=== PATIENT | male | born 1995 | race Caucasian/White ===

== ENCOUNTER 2021-07-13 07:02 | Outpatient (REF) | payer OTHER, SELFPAY ==
[2021-07-13 10:47] LABS: MANUAL DIFF FLAG NO
[2021-07-13 10:55] LABS: Basophils Percent Auto 0.4 % (0-2); Eosinophils Absolute Auto 0.3 X10*3/uL (0.0-0.4); Eosinophils Percent Auto 4.5 % (0-4); Hematocrit 44.8 % (42-52); Hemoglobin 15.3 g/dl (14.0-18.0); Imm Gran Abs Auto 0.01 X10*3/uL (0.00-0.03); Imm Gran Pct Auto 0.1 % (0.0-0.4); Lymphocytes Absolute Auto 2.4 X10*3/uL (1.2-4.9); Lymphocytes Percent Auto 35.5 % (20-40); Mean Corpuscular HGB Conc 34.2 g/dl (31.0-36.0); Mean Corpuscular Hemoglobin 28.9 pg (27.0-33.0); Mean Corpuscular Volume 84.5 fL (80-98); Mean Platelet Volume 11.4 fL (9.4-12.4); Monocytes Absolute Auto 0.7 X10*3/uL (0.1-1.2); Monocytes Percent Auto 9.6 % (2-11); Neutrophils Absolute Auto 3.4 X10*3/uL (2.0-8.3); Neutrophils Percent Auto 49.9 % (45-73); Platelet Count 263 X10*3/uL (160-400); Red Cell Distribution Width 12.3 % (11.0-16.0); White Blood Count 6.7 X10*3/uL (4.8-10.8)
[2021-07-13 11:41] LABS: TSH reflex Free T4 0.79 uIU/mL (0.32-4.0)
[2021-07-13 11:42] LABS: Alanine Aminotransferase 33 U/L (0-40); Albumin Level 4.5 g/dL (3.5-5.0); Alkaline Phosphatase 86 U/L (39-117); Anion Gap 11 (12-20); Aspartate Amino Transferase 20 U/L (5-37); Bilirubin Total 2.1 mg/dL (0.0-1.0); Blood Urea Nitrogen 11 mg/dL (9-16); Calcium 9.8 mg/dL (8.4-10.2); Carbon Dioxide 27 mmol/L (22-29); Chloride 104 mmol/L (96-108); Cholesterol 224 mg/dL; Estimated Glomerular Filt Rate > 60; Glucose Fasting 94 mg/dL (60-99); HDL Cholesterol 40 mg/dL; LDL Cholesterol Calculated 158 mg/dl; Potassium 4.4 mmol/L (3.3-5.1); Sodium 138 mmol/L (135-145); Total Protein 7.1 g/dL (6.5-8.0); Triglycerides 134 mg/dL
[2021-07-13 12:52] LABS: Appearance Urine TURBID; Color Urine YELLOW; Glucose Urine UA NEG (NEG); Leukocyte Esterase Urine 1+ (NEG); Nitrite Urine NEG (NEG); Specific Gravity - Urine 1.025 (1.005-1.025); Urine Blood NEG (NEG); Urine Ketones NEG (NEG); Urine Protein NEG (NEG-TRACE)
[2021-07-13 13:12] LABS: Amorphous Sediment Urine 4+ /LPF; Bacteria Urine 1+ /LPF; RBC Urine 0-2 /HPF (0)
== END 2021-07-13 07:03 | disposition home or self-care (01) ==
LOC: HO.WFDLDS 07:02
PROVIDERS: Visit Provider Family Medicine
DX: Z00.00 Encounter for general adult medical examination without abnormal findings (principal); R41.840 Attention and concentration deficit
CPT/HCPCS: 36415; 80053; 80061; 81001; 81003; 84443; 85025

== ENCOUNTER 2022-01-31 12:45 | Outpatient (REF) | payer OTHER, SELFPAY | END 2022-01-31 12:46 | disposition home or self-care (01) | LOC: HO.LAB 12:45 | PROVIDERS: Visit Provider Hospitalist | DX: R50.9 Fever, unspecified (principal); J02.8 Acute pharyngitis due to other specified organisms; B97.89 Other viral agents as the cause of diseases classified elsewhere; Z20.822 Contact with and (suspected) exposure to COVID-19 | CPT/HCPCS: U0003; U0005 ==

== ENCOUNTER 2022-04-25 11:34 | Outpatient (REF) | payer OTHER, SELFPAY ==
[2022-04-25 12:48] LABS: Influenza A PCR NEGATIVE (Negative); Influenza B PCR NEGATIVE (Negative); Resp Syncy Virus RNA Qual PCR NEGATIVE (Negative); SARS COV2 PCR INHOUSE NEGATIVE (Negative)
== END 2022-04-25 11:35 | disposition home or self-care (01) ==
LOC: HO.LNP 11:34
PROVIDERS: Visit Provider Family Medicine
DX: Z20.822 Contact with and (suspected) exposure to COVID-19 (principal); J02.9 Acute pharyngitis, unspecified
CPT/HCPCS: 0241U

== ENCOUNTER 2022-04-28 09:12 | Outpatient (REF) | payer OTHER, SELFPAY ==
--- NOTE | ~2022-04-28 | XR_ITS ---
EXAMINATION: XR CHEST CLINICAL INFORMATION: Cough. COMPARISON: None TECHNIQUE: 2 views of the chest were obtained. FINDINGS: No significant abnormality is noted involving the heart, lungs, mediastinum, bony thorax or soft tissues. XR/XR chest 2V IMPRESSION: Unremarkable chest examination.
[2022-04-28 11:14] LABS: MANUAL DIFF FLAG NO
[2022-04-28 11:25] LABS: Basophils Percent Auto 0.6 % (0-2); Eosinophils Absolute Auto 0.5 X10*3/uL (0.0-0.4); Eosinophils Percent Auto 10.3 % (0-4); Hematocrit 47.5 % (42.0-52.0); Hemoglobin 16.5 g/dl (14.0-18.0); Imm Gran Abs Auto 0.01 X10*3/uL (0.00-0.03); Imm Gran Pct Auto 0.2 % (0.0-0.4); Lymphocytes Absolute Auto 1.9 X10*3/uL (1.2-4.9); Lymphocytes Percent Auto 39.5 % (20-40); Mean Corpuscular HGB Conc 34.7 g/dl (31.0-36.0); Mean Corpuscular Hemoglobin 29.7 pg (27.0-33.0); Mean Corpuscular Volume 85.4 fL (80.0-98.0); Mean Platelet Volume 11.6 fL (9.4-12.4); Monocytes Absolute Auto 0.7 X10*3/uL (0.1-1.2); Monocytes Percent Auto 15.5 % (2-11); Neutrophils Absolute Auto 1.6 x10*3/uL (2.0-8.3); Neutrophils Percent Auto 33.9 % (45-73); Platelet Count 227 X10*3/uL (160-400); Red Blood Count 5.56 X10*6/uL (4.60-5.80); Red Cell Distribution Width 12.4 % (11.0-16.0); White Blood Count 4.8 X10*3/uL (4.8-10.8)
[2022-04-28 11:40] LABS: Anion Gap 12 (12-20); Blood Urea Nitrogen 10 mg/dL (9-16); Carbon Dioxide 26 mmol/L (22-29); Chloride 104 mmol/L (96-108); Estimated Glomerular Filt Rate > 60; Glucose Random 89 mg/dL (60-115); Potassium 4.9 mmol/L (3.3-5.1); Sodium 137 mmol/L (135-145)
[2022-04-28 12:35] LABS: Influenza A PCR NEGATIVE (Negative); Influenza B PCR NEGATIVE (Negative); Resp Syncy Virus RNA Qual PCR NEGATIVE (Negative); SARS COV2 PCR INHOUSE NEGATIVE (Negative)
[2022-05-01 12:32] LABS: CRP High Sensitivity 4.5 mg/L
== END 2022-04-28 09:13 | disposition home or self-care (01) ==
LOC: HO.XRAY 09:12
PROVIDERS: Visit Provider Family Medicine
DX: Z00.00 Encounter for general adult medical examination without abnormal findings (principal); Z20.822 Contact with and (suspected) exposure to COVID-19; R05.9 Cough, unspecified; R09.89 Other specified symptoms and signs involving the circulatory and respiratory systems
CPT/HCPCS: 0241U; 36415; 71046; 80048; 85025; 86141

== ENCOUNTER 2022-11-07 09:53 | Outpatient (REF) | payer OTHER, SELFPAY ==
[2022-11-07 12:21] LABS: Influenza A PCR NEGATIVE (Negative); Influenza B PCR NEGATIVE (Negative); Resp Syncy Virus RNA Qual PCR NEGATIVE (Negative); SARS COV2 PCR INHOUSE NEGATIVE (Negative)
== END 2022-11-07 09:54 | disposition home or self-care (01) ==
LOC: HO.LAB 09:53
PROVIDERS: Visit Provider Family Medicine
DX: Z20.822 Contact with and (suspected) exposure to COVID-19 (principal)
CPT/HCPCS: 0241U

== ENCOUNTER 2023-07-04 08:31 | Outpatient (AMB) | payer BC, SELFPAY ==
--- NOTE | 2023-07-04 08:59 | MHC.OFFWIV ---
Intake Vital Signs 07/04/23 09:01 Weight 229 lb BP 120/80 Blood Pressure Location Rt brachial Position Sitting Pulse 66 Pulse Source Pulse Oximeter Pulse Oximetry (%) 98 Oxygen Delivery Method Room Air Oxygen Flow Rate 98.1 Intake Visit Reasons: EP ?Stomach bug Intake Note: Patient here for possible stomach bug. He did mention he had sushi and then woke up the next day with nausea, sweating, weak and vomiting. Patient Tobacco Use Status: Current someday Tobacco user Allergies shellfish derived Allergy (Intermediate, Verified 07/04/23 09:33) Hives Medication List - Last Reconciled 07/04/23 by Gilson Baird MD citalopram 10 mg PO DAILY 30 days omeprazole 20 mg PO DAILY 6 weeks sumatriptan succinate take 1 tab at onset of headache; if no relief may repeat 1 tab after at least 2 hrs; max = 4 tabs/24 hr orally PRN; 30 days topiramate 50 mg PO DAILY Do you need a note to return to daycare/school/sports/work: Yes HPI EP ?Stomach bug HPI Details 28-year-old male presents to the office for a sick visit. Patient has been having abdominal pain, nausea and vomiting in the past few days. 1-2 episodes of diarrhea 2. He believes symptoms started after he ate sushi. Unable to work and needs a note for work. [facility] Medical History History of kidney stones Family History Father Hypertension Mother Hypertension Other Substance use disorder Social History Housing: House Alcohol intake: current Alcohol intake frequency: holidays/special occasions only Patient Tobacco Use Status: Current someday Tobacco user e-Cigarette/Vaping Use: Never Used Substance Use Type: Marijuana service: No Current occupational status: employed and student Current occupational exposures/hazards: No Cognitive needs: No Hearing needs: No Vision needs: Yes (glasses) Physical Exam Vital Signs: Last Vital Signs Pulse 66 07/04/23 09:01 BP 120/80 07/04/23 09:01 Pulse Ox 98 07/04/23 09:01 Oxygen Delivery Method Room Air 07/04/23 09:01 Oxygen Flow Rate 98.1 07/04/23 09:01 Const General: cooperative and healthy appearing Nutritional Appearance: well nourished Orientation/consciousness: patient oriented x3 Limitations: no limitations HEENT Head: Yes normal to inspection Eyes General: appearance normal, both eyes and all related structures Neck Neck: Yes normal visual inspection Chest Chest palpation & inspection: normal palpation of entire chest wall Resp Effort & Inspection: normal respiratory effort Neuro General: patient oriented x3 Assessment & Plan Assessment & Plan (1) Gastroenteritis: Code(s): K52.9 - Noninfective gastroenteritis and colitis, unspecified Plan: Self-limiting illness. No antibiotics needed. Note for work given. Coding Level of Care Code Est Pt Level 3 (32706) Diagnoses Gastroenteritis K52.9
[2023-07-04 09:01] VITALS: BP 120/80; PULSE 66; O2SAT 98
== END 2023-07-04 10:27 | disposition home or self-care (01) ==
PROVIDERS: PCP Family Medicine; Visit Provider Internal Medicine
DX: K52.9 Noninfective gastroenteritis and colitis, unspecified (principal)
CPT/HCPCS: 99213

== ENCOUNTER 2023-10-11 16:11 | Outpatient (AMB) | payer BC, SELFPAY ==
[2023-10-11 16:27] VITALS: BP 122/74; PULSE 67; O2SAT 97; BMI 31.1
--- NOTE | 2023-10-11 16:27 | MHC.PC.OV ---
Vital Signs 10/11/23 16:27 Height 6 ft Weight 229 lb BMI 31.1 BP 122/74 Blood Pressure Location Lt brachial Position Sitting Pulse 67 Pulse Source Pulse Oximeter Pulse Oximetry (%) 97 Oxygen Delivery Method Room Air Intake Visit Reasons: CPE with f/u labs and health maintenance Intake Note: Patient is here for his physical, is concerned about the Citalopram. Allergies shellfish derived Allergy (Intermediate, Verified 10/11/23 16:33) Hives Tobacco use date assessed: 10/11/23 Dental Screening Dental Screen Date: 10/11/23 Did you have a dental visit in the last 12 months?: No Did you have a dental problem in the last 6 months where you did not have access to dental care?: No Was dental information given to patient?: Patient declined HPI CPE with f/u labs and health maintenance HPI Details 28 y/o male presents for a CPE with f/u labs and health maintenance. No recent labs to review. He is on citalopram 10mg daily for his anxiety/depression. Pt reports ongoing GERD. He is on omeprazole 20mg daily. [facility] Medical History History of kidney stones Family History Father Hypertension Mother Hypertension Other Substance use disorder Social History Housing: House Alcohol intake: current Alcohol intake frequency: holidays/special occasions only Patient Tobacco Use Status: Current someday Tobacco user e-Cigarette/Vaping Use: Never Used Substance Use Type: Marijuana service: No Current occupational status: employed and student Current occupational exposures/hazards: No Cognitive needs: No Hearing needs: No Vision needs: Yes (glasses) Questionnaire Thrive Questionnaire Date Thrive assessed: 12/01/22 BRYAN-7 AMB Questionnaire BRYAN-7 Date BRYAN - 7 assessed: 12/01/22 Source: Developed by Drs. Ryland Lizarraga, Mariah Aggarwal, Deven Elkins and colleagues, with an educational joanna from [employer] Review of Systems Const Denies chills, Denies fatigue, Denies fever(s), Denies headache(s) and Denies weakness Eyes Denies change in vision ENT Denies dizziness, Denies headache(s), Denies hearing loss, Denies nasal congestion, Denies sinus pain, Denies sinus pressure and Denies sore throat Card Denies chest pain, Denies lightheadedness, Denies dyspnea and Denies other (palpitations) Resp Denies cough, Denies dyspnea and Denies wheezing GI Denies abdominal pain, Denies melena, Denies hematochezia, Denies change in bowel habits, Denies dyspepsia and Denies nausea Denies hematuria and Denies dysuria Musc Denies abnormal gait, Denies myalgias, Denies arthralgias, Denies numbness and Denies tingling Skin/Breast Denies rash, Denies unusual bruising and Denies wounds Neuro Denies abnormal gait, Denies dizziness, Denies headache(s), Denies memory loss, Denies numbness, Denies Sensory deficit (Neuro), Denies tingling and Denies weakness Psych Denies anxiety, Denies depression and Denies memory loss Endo Denies cold intolerance, Denies fatigue, Denies heat intolerance, Denies polydipsia and Denies polyuria Saqib/Lymph Denies easy bleeding and Denies easy bruising Aller/Immun Denies wheezing Physical exam (Primary Care) Vital Signs: Last Vital Signs Pulse 67 10/11/23 16:27 BP 122/74 10/11/23 16:27 Pulse Ox 97 10/11/23 16:27 Oxygen Delivery Method Room Air 10/11/23 16:27 BMI result Body Mass Index 31.1 Tobacco/Smoking Status: Tobacco use Status Tobacco use date assessed 10/11/23 10/11/23 16:39 Patient Tobacco Use Status Current someday Tobacco 10/11/23 16:28 e-Cigarette/Vaping Use Never Used 10/11/23 16:28 Thrive Assessment: Date of Thrive Assessment Date Thrive assessed 12/01/22 10/11/23 16:28 Const General: no acute distress, well developed, alert and awake Nutritional Appearance: well nourished and obese Orientation/consciousness: patient oriented x3 HENMT Head: Yes normocephalic and Yes atraumatic Ears: hearing grossly normal bilaterally and TM's normal bilaterally General nose exam: Normal external nose present and Normal nares present Mouth: Normal oral and palatal mucosa present and moist mucous membranes Teeth and gingiva: dentition normal Throat: Yes posterior oropharynx normal Eyes General: appearance normal, both eyes and all related structures Pupils: Equal, round and reactive pupils present and Pupil accommodation reflex normal EOM: EOMs intact bilaterally Neck Neck: Yes normal visual inspection, Yes no lymphadenopathy and Yes trachea midline Thyroid: Thyroid normal Carotids: no bruits Lymphatic: no lymphadenopathy noted Chest Chest palpation & inspection: normal inspection of the chest Resp Effort & Inspection: normal respiratory effort Auscultation: clear to auscultation bilaterally Cardio Rate: regular rate Rhythm: regular rhythm Heart sounds: S1 normal heart sound present, S2 normal heart sound present, no gallops, no murmurs and no rubs Bruits: no abdominal aortic bruits and no carotid bruits GI Palpation (GI): No Abdominal aortic bruit present, Soft to palpation, nontender, No hepatosplenomegaly present and No Rebound tenderness present Auscultation: normal bowel sounds General: Yes no CVA tenderness Back/Spine/Pelvis Back: no CVA tenderness Cervical Spine: cervical ROM normal and No Cervical spine tenderness Thoracic/Lumbar Spine: thoraco-lumbar ROM normal, No pain with thoraco-lumbar ROM, No thoracic spinal tenderness and No lumbar spinal tenderness Skin Lesions: no lesions Rashes: no rashes Trauma: no lacerations or abrasions Wounds: no wounds Nails: normal Neuro General: patient oriented x3 Cranial nerves: Yes Equal, round and reactive pupils present Cognition (Neuro): normal cognition Gait exam (Neuro): Normal gait present Motor exam (neuro): 5/5 motor strength present throughout Sensory Exam: No Sensory deficit (Neuro) Deep tendon reflexes (DTR's): Right patellar reflex intensity grade: 2+ and Left patellar reflex intensity grade: 2+ Extrem General: Yes normal to inspection and No edema Psych Appearance: grossly normal Affect: normal affect Attitude: cooperative Thought process: Normal thought process present Assessment and Plan Assessment & Plan (1) Encounter for annual general medical examination without abnormal findings in adult: Code(s): Z00.00 - Encounter for general adult medical examination without abnormal findings Plan: 28-year-old?male?presents?for?complete?physical?exam Encouraged?healthy?diet?with?active?lifestyle?and?plenty?of?exercise (2) Anxiety and depression: Code(s): F41.9 - Anxiety disorder, unspecified; F32.A - Depression, unspecified Plan: Patient?would?like?to?increase?citalopram.??He?notes?that?it?had?been?higher?previously?and?was?working?better Will?increase?back?to?30?mg?daily (3) GERD (gastroesophageal reflux disease): Code(s): K21.9 - Gastro-esophageal reflux disease without esophagitis Plan: Chronic?GERD?despite?omeprazole. Continue?omeprazole?and?I?have?referred?him?to?GI Orders: Orders Comprehensive [place]. Panel Fast Today Z00.00 - Encounter for general adult medical examination without abnormal findings Complete Blood Count Auto Diff Today Z00.00 - Encounter for general adult medical examination without abnormal findings Lipid Panel Today Z00.00 - Encounter for general adult medical examination without abnormal findings TSH reflex Free T4 Today Z00.00 - Encounter for general adult medical examination without abnormal findings Microalbumin, Random (w Creat) Today I10 - Essential (primary) hypertension UA and rflx microscopic Today Z00.00 - Encounter for general adult medical examination without abnormal findings Referrals Gastroenterology Referral K21.9 - Gastro-esophageal reflux disease without esophagitis Medications: Changed From citalopram 10 mg PO DAILY 30 days 30 tabs 3RF F41.9 - Anxiety disorder, unspecified To citalopram 30 mg (1.5 x 20 mg) PO DAILY 45 tabs 3RF 30 days F41.9 - Anxiety disorder, unspecified Refilled omeprazole take on an empty stomach with water 20 mg PO DAILY 42 caps 1RF 6 weeks K21.9 - Gastro-esophageal reflux disease without esophagitis Coding Level of Care Code Est Pt Level 3 (70762) Est Pt Prev Care 18-39y(30478) Diagnoses Encounter for annual general medical examination without abnormal findings in adult Z00.00 Anxiety and depression F41.9; F32.A GERD (gastroesophageal reflux disease) K21.9
== END 2023-10-11 17:21 | disposition home or self-care (01) ==
PROVIDERS: PCP Family Medicine; Visit Provider Family Medicine
DX: Z00.00 Encounter for general adult medical examination without abnormal findings (principal); F41.9 Anxiety disorder, unspecified; F32.A Depression, unspecified; K21.9 Gastro-esophageal reflux disease without esophagitis
CPT/HCPCS: 99395

== ENCOUNTER 2024-01-10 08:31 | Outpatient (REF) | payer BC, SELFPAY ==
[2024-01-10 11:34] LABS: MANUAL DIFF FLAG NO
[2024-01-10 11:35] LABS: Basophils Percent Auto 0.4 % (0-2); Eosinophils Absolute Auto 0.3 X10*3/uL (0.0-0.4); Eosinophils Percent Auto 4.4 % (0-4); Hematocrit 47.4 % (42.0-52.0); Hemoglobin 16.6 g/dl (14.0-18.0); Imm Gran Abs Auto 0.02 X10*3/uL (0.00-0.03); Imm Gran Pct Auto 0.3 % (0.0-0.4); Lymphocytes Absolute Auto 2.2 X10*3/uL (1.2-4.9); Lymphocytes Percent Auto 29.1 % (20-40); Mean Corpuscular Hemoglobin 29.5 pg (27.0-33.0); Mean Corpuscular Volume 84.2 fL (80.0-98.0); Mean Platelet Volume 11.3 fL (9.4-12.4); Monocytes Absolute Auto 0.6 X10*3/uL (0.1-1.2); Monocytes Percent Auto 8.1 % (2-11); Neutrophils Absolute Auto 4.4 x10*3/uL (2.0-8.3); Neutrophils Percent Auto 57.7 % (45-73); Platelet Count 266 X10*3/uL (160-400); Red Blood Count 5.63 X10*6/uL (4.60-5.80); Red Cell Distribution Width 12.3 % (11.0-16.0); White Blood Count 7.6 X10*3/uL (4.8-10.8)
[2024-01-10 11:50] LABS: Appearance Urine Turbid; Color Urine Dark Yellow; Glucose Urine UA Negative (Negative); Leukocyte Esterase Urine Trace (Negative); Nitrite Urine Negative (Negative); Specific Gravity - Urine 1.025 (1.005-1.025); UMIC TRIGGER UA YES; Urine Blood Negative (Negative); Urine Ketones Trace mg/dL (Negative); Urine Protein Negative (Neg-Trace)
[2024-01-10 11:53] LABS: Bacteria Urine None Seen (None Seen); Hyaline Casts Urine 0-2 /LPF (0-2); RBC Urine 0-2 /HPF (0-2); Squamous Epithelial Cell Urine 0-2 /HPF (0-2)
[2024-01-10 12:09] LABS: Alanine Aminotransferase 33 U/L (0-40); Albumin Level 4.6 g/dL (3.5-5.0); Alkaline Phosphatase 100 U/L (39-117); Anion Gap 11 (12-20); Aspartate Amino Transferase 21 U/L (5-37); Bilirubin Total 1.7 mg/dL (0.0-1.0); Blood Urea Nitrogen 11 mg/dL (9-16); Calcium 9.8 mg/dL (8.4-10.2); Carbon Dioxide 30 mmol/L (22-29); Chloride 105 mmol/L (96-108); Cholesterol 218 mg/dL (<200); Estimated Glomerular Filt Rate > 60; Glucose Fasting 101 mg/dL (60-99); HDL Cholesterol 39 mg/dL (>40); LDL Cholesterol Calculated 143 mg/dL (<100); Potassium 4.5 mmol/L (3.3-5.1); Sodium 141 mmol/L (135-145); Total Protein 7.8 g/dL (6.5-8.0); Triglycerides 184 mg/dL (<150)
[2024-01-10 12:16] LABS: TSH reflex Free T4 1.18 uIU/mL (0.32-4.0)
[2024-01-10 12:16] LABS: Microalbum/Creatinine Ratio Ur 5.8 ug/mg cr (<30)
== END 2024-01-10 08:32 | disposition home or self-care (01) ==
LOC: HO.WFDLDS 08:31
PROVIDERS: Visit Provider Family Medicine
DX: Z00.00 Encounter for general adult medical examination without abnormal findings (principal); I10 Essential (primary) hypertension
CPT/HCPCS: 36415; 80053; 80061; 81001; 82043; 82570; 84443; 85025

== ENCOUNTER 2024-01-14 14:51 | Outpatient (AMB) | payer BC, SELFPAY ==
[2024-01-14 14:56] VITALS: BP 137/79; PULSE 68; BMI 29.8
--- NOTE | 2024-01-14 14:56 | MHC.OFFVIS ---
Intake Vital Signs 01/14/24 14:56 Height 6 ft Weight 219 lb 9.286 oz BMI 29.8 BP 137/79 Blood Pressure Location Lt brachial Position Sitting Pulse 68 Intake Visit Reasons: Gerd Intake Note: New patient in office for evaluation and management of GERD. CC: Patient states he has been going to the doctors for migraines mostly. He sates he has been having a lot of issues with his gallbladder after eating some foods. He reports nausea, acid reflux, heartburn, lingering headache, sometimes a migraine, and feeling bloated. He states he is trying to figure out if his gallbladder is the root of his migraine issues. He's had these issues since he was a child. PT reports passing a gallstone that was very big . Drawer Liner Required: No Accompanied by: Self / Same As Patient Allergies shellfish derived Allergy (Intermediate, Verified 01/14/24 15:07) Hives No Known Drug Allergies Allergy (Unknown, Verified 01/14/24 15:07) none HPI Gerd HPI Details 29-year-old male with past medical history and anxiety, migraines, GERD hypercholesteremia, is here today for initial consultation. Patient was sent to us by his PCP. Patient reports to symptoms of postprandial loose stools occasionally depending on what he eats. Patient states that when he eats something fried or spicy he will have loose stools and upper abdominal patient reports that the pain is in the epigastric area and in right upper quadrant. Patient states that otherwise he moves his bowels every day. Patient states that when he eats healthy like chicken and vegetables he is not having those symptoms. Patient denies any nausea or vomiting. Repaired occasional dyspepsia depending on the food. Currently is taking omeprazole. However patient is not taking it every day. Takes omeprazole for 3 days then off for 1-2 days. Patient denies any melena, hematochezia, unintentional weight loss or ribbon like stools. Patient reports occasional dyspepsia without dysphagia or odynophagia. Patient believes that he might have gallstones [facility] Medical History (Updated 01/14/24 @ 15:36 by Narda Flores SPECIAL MACHINE OPERATOR-) Anxiety and depression Abnormal lung sounds Cough Constipation Sore throat History of kidney stones Surgical History History of mandibular surgery Family History Father Hypertension High cholesterol Mother Hypertension High cholesterol Other Substance use disorder Social History Housing: House Alcohol intake: current Alcohol intake frequency: holidays/special occasions only Patient Tobacco Use Status: Current someday Tobacco user e-Cigarette/Vaping Use: Never Used Substance Use Type: Marijuana service: No Current occupational status: employed and student Current occupational exposures/hazards: No Cognitive needs: No Hearing needs: No Vision needs: Yes (glasses) Review of Systems Const Denies weight gain and Denies weight loss ENT Reports no additional complaints, Denies dysphagia and Denies odynophagia Card Reports no additional complaints Resp Reports no additional complaints GI Reports abdominal pain (Epigastric, RUQ), Denies belching, Denies melena, Reports bloating, Reports constipation, Denies dysphagia, Denies excessive flatus, Reports dyspepsia, Reports heartburn, Denies diarrhea, Reports loose stools, Denies nausea, Denies odynophagia and Denies vomiting Reports no additional complaints Musc Reports no additional complaints Neuro Reports no additional complaints Psych Reports no additional complaints Endo Reports no additional complaints Physical Exam Vital Signs: Last Vital Signs Pulse 68 01/14/24 14:56 BP 137/79 01/14/24 14:56 BMI result Body Mass Index 29.8 Const General: healthy appearing, no acute distress and well developed Nutritional Appearance: obese Orientation/consciousness: patient oriented x3 Resp Effort & Inspection: normal respiratory effort, able to speak in complete sentences, no tracheal deviation and symmetric chest movement Auscultation: clear to auscultation bilaterally Cardio Rate: regular rate GI Inspection: Yes normal to inspection, No distended and Yes obesity Palpation (GI): Soft to palpation, not firm, nontender and No hepatosplenomegaly present Auscultation: normal bowel sounds General: Yes no CVA tenderness Back/Spine/Pelvis Back: no CVA tenderness Skin General skin exam: elasticity normal, turgor normal and dry skin Neuro General: patient oriented x3 Psych Appearance: grossly normal Mental Status: mental status grossly normal Assessment & Plan Assessment & Plan (1) Diarrhea: Code(s): R19.7 - Diarrhea, unspecified Qualifiers: Diarrhea type: functional diarrhea Qualified Code(s): K59.1 - Functional diarrhea (2) GERD (gastroesophageal reflux disease): Code(s): K21.9 - Gastro-esophageal reflux disease without esophagitis Qualifiers: Esophagitis presence: esophagitis presence not specified Qualified Code(s): K21.9 - Gastro-esophageal reflux disease without esophagitis (3) Elevated bilirubin: Code(s): R17 - Unspecified jaundice (4) Postprandial diarrhea: Code(s): K52.9 - Noninfective gastroenteritis and colitis, unspecified Plan Occasional postprandial loose stools depending on what he eats. It usually happens with greasy or spicy food. Most likely functional diarrhea. Discussed with patient low FODMAP diet. List of food recommended as well as list of food to avoid given to patient. Occasional postprandial abdominal pain epigastric and right upper quadrant. Patient will go for ultrasound rule out cholelithiasis, cholecystitis. Unlikely cholecystitis as patient pain only happens occasionally depending on what he eats. Mostly his pain is in epigastric area. Patient does admit to postprandial abdominal bloating. Again patient will continue low FODMAP diet. Will repeat bili. Patient's total bilirubin was elevated. He had normal liver enzymes. Will check lipase as well to pancreatitis. Patient will be seen in 4 months, sooner on as needed basis. He can continue omeprazole on as needed basis. Discussed with him avoiding dietary triggers in late night snacking. Staying upright for minimum 3 hours after meals discussed with patient. Patient is agreeable to current plan of care and verbalizes understanding of instructions he was given the opportunity to ask questions and all questions answered. Thank you for allowing me to participate in his care Orders: Orders Vitamin D 25-OH (D2 and D3) Today E55.9 - Vitamin D deficiency, unspecified Transglutaminase Ab IgG Today R10.9 - Unspecified abdominal pain Transglutaminase IgA Today R10.9 - Unspecified abdominal pain US abdomen complete Today R10.9 - Unspecified abdominal pain Bilirubin Total Today R10.9 - Unspecified abdominal pain Vitamin B12 and Folate Today R19.7 - Diarrhea, unspecified Lipase Today R10.9 - Unspecified abdominal pain Bilirubin Direct Today R17 - Unspecified jaundice Coding Level of Care Code New Pt Level 4 (07373) Diagnoses Functional diarrhea K59.1 Diarrhea type: functional diarrhea Gastroesophageal reflux disease, unspecified whether esophagitis present K21.9 Esophagitis presence: esophagitis presence not specified Elevated bilirubin R17 Postprandial diarrhea K52.9 Time Spent (min) 45 Comment 30 minutes spent with patient and additional 15 minutes spent reviewing his records
== END 2024-01-14 16:12 | disposition home or self-care (01) ==
PROVIDERS: PCP Family Medicine; Visit Provider Nurse Practitioner Family
DX: K52.9 Noninfective gastroenteritis and colitis, unspecified (principal); K21.9 Gastro-esophageal reflux disease without esophagitis; R17 Unspecified jaundice
CPT/HCPCS: 99204

== ENCOUNTER 2024-01-14 14:51 | Outpatient (REF) | payer BC, SELFPAY ==
[2024-01-14 17:51] LABS: Appearance Urine Clear; Color Urine Yellow; Glucose Urine UA Negative (Negative); Leukocyte Esterase Urine Negative (Negative); Nitrite Urine Negative (Negative); Urine Blood Negative (Negative); Urine Ketones Negative (Negative); Urine Protein Negative (Neg-Trace)
[2024-01-14 18:06] LABS: Bilirubin Direct 0.3 mg/dL (0.0-0.5); Lipase 12 U/L (8-78)
[2024-01-14 18:39] LABS: Folate 11.2 ng/mL (> or = 4.0); Vitamin B12 437 pg/mL (200-900)
[2024-01-15 19:28] LABS: Transglutaminase Ab IgG <1.0 U/mL; Transglutaminase IgA <1.0 U/mL
[2024-01-18 15:24] LABS: Vitamin D 25-OH, D2 <4 ng/mL; Vitamin D 25-OH, D3 15 ng/mL; Vitamin D 25-OH, Total 15 ng/mL (30-100)
== END 2024-01-14 14:52 | disposition home or self-care (01) ==
LOC: HO.LAB 14:51
PROVIDERS: PCP Family Medicine; Visit Provider Nurse Practitioner Family
DX: Z00.00 Encounter for general adult medical examination without abnormal findings (principal); R10.9 Unspecified abdominal pain; E55.9 Vitamin D deficiency, unspecified; K59.1 Functional diarrhea; K21.9 Gastro-esophageal reflux disease without esophagitis
CPT/HCPCS: 36415; 81003; 82247; 82248; 82306; 82607; 82746; 83690; 86364

== ENCOUNTER 2024-01-18 11:25 | Outpatient (REF) | payer BC, SELFPAY ==
--- NOTE | ~2024-01-18 | US_ITS ---
EXAMINATION: US ABDOMEN COMPLETE CLINICAL INFORMATION: Abdominal pain. COMPARISON: None available. TECHNIQUE: Real-time imaging of the abdominal viscera. FINDINGS: PANCREAS: Obscured by bowel gas. ABDOMINAL AORTA: The proximal, mid, and distal segments are normal in caliber. INFERIOR VENA CAVA: Visualized portions are normal. LIVER: Normal. The liver is normal in size. The liver contour is normal. Parenchymal echogenicity is normal. No focal hepatic lesion. There is no intrahepatic biliary duct dilatation seen. GALLBLADDER: Normal. The gallbladder is physiologically distended without evidence of stones, sludge, polyps, wall thickening or pericholecystic fluid. No tenderness elicited during the study. COMMON BILE DUCT: Normal in caliber measuring 0.2 cm in diameter. RIGHT KIDNEY: Right kidney measures 10.3 cm. No hydronephrosis. No renal calculi or focal parenchymal lesions. LEFT KIDNEY: Left kidney measures 10.4 cm. No hydronephrosis. No renal calculi or focal parenchymal lesions. SPLEEN: Normal. The spleen measures 10.8 cm in maximum dimension. FREE FLUID: None. US/US abdomen complete IMPRESSION: No sonographic abnormality. Nonvisualization of the pancreas. Should this be a region of clinical concern, consider additional imaging modality such as CT.
== END 2024-01-18 11:26 | disposition home or self-care (01) ==
LOC: HO.HMGCX 11:25
PROVIDERS: PCP Family Medicine; Visit Provider Nurse Practitioner Family
DX: R10.9 Unspecified abdominal pain (principal)
CPT/HCPCS: 76700

== ENCOUNTER 2024-02-04 13:07 | Outpatient (AMB) | payer BC, SELFPAY ==
[2024-02-04 13:59] VITALS: BP 120/80; PULSE 90; TEMP 36.2; O2SAT 97; BMI 29.3
--- NOTE | 2024-02-04 13:59 | MHC.OFFWIV ---
Intake Vital Signs 02/04/24 13:59 Height 6 ft Weight 216 lb BMI 29.3 BP 120/80 Pulse 90 Pulse Source Pulse Oximeter Temp 97.2 F Temp Source Temporal Artery Scan Pulse Oximetry (%) 97 Oxygen Delivery Method Room Air Intake Visit Reasons: EP Stomach bug/?food poisoning Intake Note: pt is here today for stomach bug food poisoning started yesterday Patient Tobacco Use Status: Current someday Tobacco user Allergies shellfish derived Allergy (Intermediate, Verified 02/04/24 14:12) Hives No Known Drug Allergies Allergy (Unknown, Verified 02/04/24 14:12) none Do you need a note to return to daycare/school/sports/work: Yes HPI HPI Comments History of Present Illness Details Patient presents to the walk-in today for sick visit Complaining of nausea since 330 this morning, abdominal pain started about 11:00 o'clock this morning. Patient reports that he has been vomiting since 11:00am, unable to keep anything down. Last meal was Kurt at 18:00 last night. He endorses 1 episode of diarrhea this morning, prior to that normal BM's. Denies blood in stool or vomit. / pain across the upper abdomen. He had recent evaluation with GI for concern of gallbladder disease, ultrasound was unremarkable. In the past this has happened after drinking alcohol, last alcohol use was over 1 week ago. Endorses THC use, last time was last night. He denies any history of cyclic vomiting. Throughout the day the pain has significantly worsened, now he feels weak, tired and unable to tolerate the pain [facility] Medical History (Updated 02/04/24 @ 15:19 by Anila Ritter APRN, [employer]) Anxiety and depression Abnormal lung sounds Cough Constipation Sore throat History of kidney stones Surgical History History of mandibular surgery Family History Father Hypertension High cholesterol Mother Hypertension High cholesterol Other Substance use disorder Social History Housing: House Alcohol intake: current Alcohol intake frequency: holidays/special occasions only Patient Tobacco Use Status: Current someday Tobacco user e-Cigarette/Vaping Use: Never Used Substance Use Type: Marijuana service: No Current occupational status: employed and student Current occupational exposures/hazards: No Cognitive needs: No Hearing needs: No Vision needs: Yes (glasses) Review of Systems Const All systems reviewed & are unremarkable except as noted in HPI and below Physical Exam Vital Signs: Last Vital Signs Temp 97.2 F 02/04/24 13:59 Pulse 90 02/04/24 13:59 BP 120/80 02/04/24 13:59 Pulse Ox 97 02/04/24 13:59 Oxygen Delivery Method Room Air 02/04/24 13:59 BMI result Body Mass Index 29.3 General: awake, alert, oriented. Anxious. Intermittent crying. Skin: warm, dry, intact HEENT: Normocephalic. Hearing intact. Cardiac: External chest normal in appearance. Respiratory: No cough, audible wheezing or stridor. Abdomen: Tenderness across right upper and left upper abdomen. Positive guarding. Intractable vomiting. Clear emesis. MS: No obvious swelling or deformities. Neurological: Oriented to person, place, time and situation. Thought process intact. No gait abnormalities appreciated. Psychiatric: Appropriate mood and affect. Good judgment and insight. Office Meds ondansetron 4 mg disintegrating tablet Performing Provider: Anila Ritter APRN, CNP Performing Location: [facility] Administered by: Anila Ritter APRN, CNP on 02/04/24 14:51 Dose Route Admin Location Dispensed Lot Number Expiration Date ND Assistant Floor Covering Printer 4 mg translingual 1 tab [id number] 02/10/24 Results Reviewed Results Reviewed: 01/18/24 US abd IMPRESSION: No sonographic abnormality. Nonvisualization of the pancreas. Should this be a region of clinical concern, consider additional imaging modality such as CT. Assessment & Plan Assessment & Plan (1) Intractable vomiting: Code(s): R11.10 - Vomiting, unspecified (2) Abdominal pain: Code(s): R10.9 - Unspecified abdominal pain Plan 29-year-old male [facility] for bilateral upper abdominal pain and intractable vomiting DDX: Cholelithiasis, cholecystitis, pancreatitis, cyclic vomiting, gastroenteritis, GERD, duodenal ulcer Patient was given Zofran ODT, he continued with intractable vomiting. Anxious, crying. Continues to endorse 10/10 bilateral upper abdominal pain. He was referred to [facility] emergency room for further evaluation, potential need for imaging, IV drug administration, IV fluids an/or lab work. Initially patient declined EMS transport and ER visit as he did not want to endure the ER wait. While reviewing AMA form patient decided he would accept EMS transport to the ER as the pain and vomiting was excruciating. EMS transport requested, expect was called to [facility] emergency department. Patient transport out of the department at 15:15 via EMS in stable condition. Orders: Orders AMB Ondansetron Adult Dose Today R11.2 - Nausea with vomiting, unspecified Coding Level of Care Code Est Pt Level 3 (37690) Diagnoses Intractable vomiting R11.10 Abdominal pain R10.9
== END 2024-02-04 15:27 | disposition home or self-care (01) ==
PROVIDERS: PCP Family Medicine; Visit Provider Registered Nurse Emergency
DX: R11.10 Vomiting, unspecified (principal); R10.9 Unspecified abdominal pain
CPT/HCPCS: 99213; S0119

== ENCOUNTER 2024-02-04 15:35 | Emergency (ER) | payer BC, SELFPAY ==
--- NOTE | 2024-02-04 15:44 | ECG_ITS ---
Test Reason : N/V Blood Pressure : / mmHG Vent. Rate : 110 BPM Atrial Rate : 110 BPM P-R Int : 112 ms QRS Dur : 094 ms QT Int : 346 ms P-R-T Axes : 045 065 032 degrees QTc Int : 468 ms Sinus tachycardia Otherwise normal ECG No previous ECGs available Referred By: Lilibeth Gilbert Electronically Signed By:Baldemar Rivera
[2024-02-04 16:01] VITALS: BP 128/86; PULSE 88; O2SAT 99
[2024-02-04 16:08] VITALS: BP 122/73; PULSE 104; RESP 18; TEMP 36.6; O2SAT 97; BMI 29.2
[2024-02-04] MEDS: 0.9 % Sodium Chloride 1,000 ML 999 ML IV (16:14)
[2024-02-04] MEDS: droPERidol 5 MG/2 ML VIAL 1.25 MG IVPUSH (16:17)
--- NOTE | 2024-02-04 16:19 | PC.NURSE ---
20gIV placed in the right AC - labs obtained/sent to lab. IVF/medication administered per provider order. tech bedside performing ekg.
[2024-02-04 16:26] LABS: Basophils Absolute Auto 0.1 X10*3/uL (0.0-0.2); Basophils Percent Auto 0.3 % (0-2); Eosinophils Percent Auto 0.2 % (0-4); Hematocrit 48.1 % (42.0-52.0); Hemoglobin 17.2 g/dl (14.0-18.0); Imm Gran Abs Auto 0.07 X10*3/uL (0.00-0.03); Imm Gran Pct Auto 0.4 % (0.0-0.4); Lymphocytes Absolute Auto 0.5 X10*3/uL (1.2-4.9); Lymphocytes Percent Auto 3.1 % (20-40); MANUAL DIFF FLAG SCAN; Mean Corpuscular HGB Conc 35.8 g/dl (31.0-36.0); Mean Corpuscular Hemoglobin 29.6 pg (27.0-33.0); Mean Corpuscular Volume 82.6 fL (80.0-98.0); Mean Platelet Volume 10.7 fL (9.4-12.4); Monocytes Percent Auto 5.9 % (2-11); Neutrophils Absolute Auto 15.7 x10*3/uL (2.0-8.3); Neutrophils Percent Auto 90.1 % (45-73); Platelet Count 255 X10*3/uL (160-400); Red Blood Count 5.82 X10*6/uL (4.60-5.80); SCAN SMEAR FLAG 1; White Blood Count 17.4 X10*3/uL (4.8-10.8)
--- NOTE | 2024-02-04 16:32 | ED_ITS ---
HPI - Nausea/Vomiting/Diarrhea General Chief complaint: Nausea/Vomiting/Diarrhea Stated complaint: abd pain, n/v, chills Time Seen by Provider: 02/04/24 16:00 Source: patient and EMS Mode of arrival: ambulatory Limitations: no limitations History of Present Illness HPI Narrative: Patient is a 29-year-old male who presents emergency department via EMS coming from an urgent care, presented there for evaluation of nausea vomiting diffuse abdominal pain, predominately epigastric with onset of symptoms last night. He states he has had a history of similar symptoms in the past and reports that this is typically due to his gallbladder and particular foods that he eats. He denies any recent ill contacts. He denies any d alcohol or recreational drug usage. He states he has been seen by a cruise counselor recently, and had an ultrasound of his abdomen done earlier this month. He denies fevers, chills, headache, URI symptoms, genitourinary symptoms, hematochezia, melena, constipation, diarrhea Related Data Previous Rx's Medication Instructions Recorded sumatriptan succinate 50 mg tablet See Rx Instructions PO .COMPLEX 07/04/23 PRN migraine headache 30 days #20 tabs citalopram 20 mg tablet 30 mg (1.5 x 20 mg) PO DAILY 30 10/11/23 days #45 tabs omeprazole 20 mg capsule,delayed 20 mg PO DAILY 6 weeks #42 caps 10/24/23 release cholecalciferol (vitamin D3) 50 50 mcg PO DAILY #90 caps 01/18/24 mcg (2,000 unit) capsule ondansetron 4 mg disintegrating 4 mg PO Q8H PRN nausea and 02/04/24 tablet vomiting #10 tabs Allergies Allergy/AdvReac Type Severity Reaction Status Date / Time shellfish derived Allergy Intermediate Hives Verified 02/04/24 14:12 No Known Drug Allergies Allergy Unknown none Verified 02/04/24 14:12 Review of Systems 2 Review of Systems: Yes all other systems are reviewed and are negative PMFSH Past Medical History Attestation statement: The following information was validated with the patient. Source: unable to obtain Medical History Anxiety and depression Abnormal lung sounds Cough Constipation Sore throat History of kidney stones Surgical History History of mandibular surgery Family History Family History Father Hypertension High cholesterol Mother Hypertension High cholesterol Other Substance use disorder Social History Social History Housing: House Alcohol intake: current Alcohol intake frequency: holidays/special occasions only Patient Tobacco Use Status: Current someday Tobacco user Smoked in Last 30 Days: No e-Cigarette/Vaping Use: Never Used Use of substances other than those prescribed or required for medical reasons: No Substance Use Type: Marijuana Advance Directives: No Advance Directives Information Provided: No service: No Current occupational status: employed and student Current occupational exposures/hazards: No Cognitive needs: No Hearing needs: No Vision needs: Yes (glasses) Physical Exam 2 Vital Signs: Vital Signs: Last Vital Signs Temp 98.7 F 02/04/24 18:44 Pulse 114 H 02/04/24 18:44 Resp 16 02/04/24 18:44 BP 127/72 02/04/24 18:44 Pulse Ox 96 02/04/24 18:44 O2 Del Method Room Air 02/04/24 18:44 BMI result Body Mass Index 29.2 Appearance: Alert.?Oriented to person, place and time. No acute distress.?Normal affect. Eyes: Pupils equal, round and reactive to light.? ENT: Pharynx normal.?? Neck: Normal inspection.? Neck supple.?? CVS: Heart sounds normal. Normal heart rate and rhythm.? Pulses normal.?? Respiratory: No respiratory distress.? Lung sounds clear to auscultation bilaterally?? Abdomen: Soft and non-tender. Normoactive bowel sounds. Skin: Skin warm and dry.? Normal skin color.? Extremities: No lower extremity edema.? Neuro: Moves all extremities spontaneously. Sensation intact bilaterally. Ambulates with normal steady gait. Course Reevaluation(s) Reevaluation #1: CBC reveals leukocytosis of 17.4 with left shift, this may be secondary to vomiting or potential infectious etiology. Patient reports feeling better, declines a p.o. trial at this time. Has not had further episodes of vomiting. He remains however tachycardic in the 110's. I did express concern for intra- abdominal infectious pathology, advised to remain in the emergency department for further treatment and evaluation. He however declines and would like to leave at this time. Patient was advised he would be leaving against medical advice, we discussed potential complications surrounding this including potential life-threatening etiologies. He verbalizes understanding and will leave against medical advice. Time: 18:27 Medications Administered Discontinued Medications Generic Name Dose Route Start Last Admin Trade Name María Elena PRN Reason Stop Dose Admin Droperidol 1.25 mg 02/04/24 15:44 02/04/24 16:17 Droperidol 5 Mg/2 Ml Vial IVPUSH 02/04/24 15:45 1.25 mg ONCE ONE Administration Sodium Chloride 1,000 mls @ 999 mls/hr 02/04/24 15:45 02/04/24 17:53 Ns IV 02/04/24 16:45 Infused .Q1H1M JANA Infusion Medical Decision Making Medical Decision Making [facility] Narrative: Patient is a 29 year old male who presents to the ED for evaluation of N/V and epigastric pain as per HPI. He appears uncomfortable at the time my initial examination is mildly tachycardic he is afebrile without tachypnea or hypoxia. He is mildly tender over his epigastric region otherwise his abdominal examination is benign. Will obtain CBC to evaluate for leukocytosis/ anemia, CMP and lipase to evaluate for abnormal electrolytes /abnormal renal function/ abnormal hepatic/biliary function. Presentation is concerning for cyclical vomiting, will trial treatment with 1 L normal saline IV fluids and droperidol IV. Differential Diagnosis Differential Diagnoses: The differential diagnosis associated with the presentation includes (Cyclical vomiting, cholecystitis, cholelithiasis, pancreatitis, viral syndrome) Admission/Observation Consideration of admission/observation: Escalation of care including admission/observation considered (See narrative above in course narrative for further detail) Lab Data 02/04/24 16:13 02/04/24 16:13 Labs: Lab Results 02/04/24 Range/Units 16:13 WBC 17.4 H (4.8-10.8) X10*3/uL RBC 5.82 H (4.60-5.80) X10*6/uL Hgb 17.2 (14.0-18.0) g/dl Hct 48.1 (42.0-52.0) % MCV 82.6 (80.0-98.0) fL MCH 29.6 (27.0-33.0) pg MCHC 35.8 (31.0-36.0) g/dl RDW 12.0 (11.0-16.0) % Plt Count 255 (160-400) X10*3/uL MPV 10.7 (9.4-12.4) fL Immature Gran % (Auto) 0.4 (0.0-0.4) % Neut % (Auto) 90.1 H (45-73) % Lymph % (Auto) 3.1 L (20-40) % [place] % (Auto) 5.9 (2-11) % Eos % (Auto) 0.2 (0-4) % Baso % (Auto) 0.3 (0-2) % Lymph # (Auto) 0.5 L (1.2-4.9) X10*3/uL [place] # (Auto) 1.0 (0.1-1.2) X10*3/uL Eos # (Auto) 0.0 (0.0-0.4) X10*3/uL Baso # (Auto) 0.1 (0.0-0.2) X10*3/uL Abs Immat Gran (auto) 0.07 H (0.00-0.03) X10*3/uL Absolute Neuts (auto) 15.7 H (2.0-8.3) x10*3/uL Absolute Nucleated RBC 0.000 (0.0-0.012) X10*3/uL Nucleated RBC % (auto) 0.0 (0.0-0.2) /100WBC Smear Tech's Comments VERIFIED Sodium 140 (135-145) mmol/L Potassium 4.0 (3.3-5.1) mmol/L Chloride 109 H (96-108) mmol/L Carbon Dioxide 20 L (22-29) mmol/L Anion Gap 15 (12-20) BUN 12 (9-16) mg/dL Creatinine 0.88 (0.5-1.4) mg/dL Estim Creat Clear Calc 151.2 Estimated GFR > 60 Random Glucose 128 H (60-115) mg/dL Calcium 9.8 (8.4-10.2) mg/dL Magnesium 1.7 (1.6-2.6) mg/dL Total Bilirubin 1.5 H (0.0-1.0) mg/dL Direct Bilirubin 0.5 (0.0-0.5) mg/dL AST 34 (5-37) U/L ALT 53 H (0-40) U/L Alkaline Phosphatase 101 (39-117) U/L Total Protein 7.8 (6.5-8.0) g/dL Albumin 4.7 (3.5-5.0) g/dL Lipase 16 (8-78) U/L Independent Interpretation I performed an independent interpretation of an: EKG Interpretation: Rate:110 Rhythm:? Sinus tachycardia Normal P waves.? Normal FLAKO.?? Normal QRS complex.?? ST T wave :??No ST elevation, no ST depression qTC:468 prior studies:? No priors available for review The study has been interpreted contemporaneously by me. Independent Historian Clinical information obtained from an independent historian. History obtained from or confirmed by: EMS External Record Review External record reviewed: Outpatient record and Prior outpatient radiology 01/14/2024 gastroenterology: GERD - discussed functional diarrhea, low FODMAP diet, omeprazole as needed 01/18/2024 abdominal ultrasound: Unremarkable liver/ gallbladder/ CBD, nonvisualization of the pancreas Discharge Plan Discharge Clinical Impression: Nausea and vomiting Patient Disposition: Left Against Medical Advice Prescriptions: New ondansetron 4 mg tablet,disintegrating 4 mg PO Q8H PRN (Reason: nausea and vomiting) Qty: 10 0RF No Action sumatriptan succinate 50 mg tablet See Rx Instructions PO .COMPLEX PRN (Reason: migraine headache) 30 Days Qty: 20 3RF Rx Instructions: take 1 tab at onset of headache; if no relief may repeat 1 tab after at least 2 hrs; max = 4 tabs/24 hr orally PRN; omeprazole 20 mg capsule,delayed release(DR/EC) 20 mg PO DAILY 42 Days Qty: 42 1RF Rx Instructions: take on an empty stomach with water cholecalciferol (vitamin D3) 50 mcg (2,000 unit) capsule 50 mcg PO DAILY Qty: 90 3RF citalopram 20 mg tablet 30 mg PO DAILY 30 Days Qty: 45 3RF Referrals: Physician,Unknown J [Primary Care Provider] - Stand Alone Forms: Against Medical Advice, Work/School Release
[2024-02-04 16:36] LABS: Alanine Aminotransferase 53 U/L (0-40); Albumin Level 4.7 g/dL (3.5-5.0); Alkaline Phosphatase 101 U/L (39-117); Anion Gap 15 (12-20); Aspartate Amino Transferase 34 U/L (5-37); Bilirubin Direct 0.5 mg/dL (0.0-0.5); Bilirubin Total 1.5 mg/dL (0.0-1.0); Blood Urea Nitrogen 12 mg/dL (9-16); Calcium 9.8 mg/dL (8.4-10.2); Carbon Dioxide 20 mmol/L (22-29); Chloride 109 mmol/L (96-108); Creatinine Clr Calc Pharmacy 151.2; Estimated Glomerular Filt Rate > 60; Glucose Random 128 mg/dL (60-115); Lipase 16 U/L (8-78); Magnesium 1.7 mg/dL (1.6-2.6); Sodium 140 mmol/L (135-145); Total Protein 7.8 g/dL (6.5-8.0)
[2024-02-04 16:57] LABS: SLIDE REVIEW VERIFIED
[2024-02-04 18:44] VITALS: BP 127/72; PULSE 114; RESP 16; TEMP 37.1; O2SAT 96
[2024-02-04 19:07] VITALS: BP 126/84; PULSE 114; RESP 18; TEMP 37; O2SAT 99
== END 2024-02-04 19:08 | disposition left against medical advice (07) ==
PROVIDERS: Emergency Medicine; Emergency Provider Emergency Medicine Emergency Medical Services
DX: R11.2 Nausea with vomiting, unspecified (principal); R10.13 Epigastric pain
CPT/HCPCS: 36415; 80048; 80076; 83690; 83735; 85025; 93005; 96361; 96374; 99284; 99285; J1790

== ENCOUNTER → 2024-02-04 15:44 | Outpatient (BNV) | payer BC, SELFPAY | PROVIDERS: Emergency Provider Emergency Medicine Emergency Medical Services; Visit Provider Internal Medicine Cardiovascular Disease | DX: R00.0 Tachycardia, unspecified (principal) | CPT/HCPCS: 93010 ==

== ENCOUNTER 2025-01-20 10:09 | Outpatient (AMB) | payer BC, SELFPAY ==
--- NOTE | 2025-01-20 10:48 | AM.OFFWIN_ITS ---
Intake Vital Signs 01/20/25 10:50 Height 6 ft Weight 95.708 kg BMI 28.6 BP 128/80 Blood Pressure Location Lt brachial Position Sitting Pulse 84 Pulse Source Pulse Oximeter Temp 97.8 F Temp Source Oral Pulse Oximetry (%) 98 Oxygen Delivery Method Room Air Intake Visit Reasons: EP swollen throat, headache, sweating Intake Note: Patient here for sore throat, headache and feverish that started Sunday. Patient Tobacco Use Status: Current someday Tobacco user Allergies shellfish derived Allergy (Intermediate, Verified 01/20/25 10:51) Hives No Known Drug Allergies Allergy (Unknown, Verified 01/20/25 10:51) none Do you need a note to return to daycare/school/sports/work: Yes HPI EP swollen throat, headache, sweating HPI Details Patient presents with 2 days sore throat swollen lymph nodes, chills/fever and sweats general malaise. Notes mother is sick with similar s ymptoms at home. Has not done any home test. Denies cough or GI symptoms. [facility] Medical History Anxiety and depression Abnormal lung sounds Cough Constipation Sore throat History of kidney stones Surgical History History of mandibular surgery Family History Father Hypertension High cholesterol Mother Hypertension High cholesterol Other Substance use disorder Social History Housing: House Alcohol intake: current Alcohol intake frequency: holidays/special occasions only Patient Tobacco Use Status: Current someday Tobacco user e-Cigarette/Vaping Use: Never Used Substance Use Type: Marijuana service: No Current occupational status: employed and student Current occupational exposures/hazards: No Cognitive needs: No Hearing needs: No Vision needs: Yes (glasses) Review of Systems Const Details: As per HPI Reports as per HPI and Reports no additional complaints ENT Reports no additional complaints and Reports as per HPI Card Reports as per HPI and Reports no additional complaints Resp Reports as per HPI and Reports no additional complaints GI Reports as per HPI and Reports no additional complaints Musc Reports no additional complaints and Reports as per HPI Neuro Reports no additional complaints and Reports as per HPI Physical Exam Vital Signs: Last Vital Signs Temp 97.8 F 01/20/25 10:50 Pulse 84 01/20/25 10:50 BP 128/80 01/20/25 10:50 Pulse Ox 98 01/20/25 10:50 Oxygen Delivery Method Room Air 01/20/25 10:50 BMI result Body Mass Index 28.6 Const General: cooperative, comfortable and no acute distress Orientation/consciousness: patient oriented x3 HEENT Ears: external ears normal and TM's normal bilaterally General nose exam: Normal external nose present and Normal nasal mucous membranes and turbinates present Face and sinus: Yes normal facial exam Mouth: Normal oral and palatal mucosa present Throat: Yes uvula midline, Yes abnormal tonsil (Hypertrophic, erythematous with mild exudate) and Yes posterior oropharynx abnormal Neck Neck: Yes lymphadenopathy (Positive anterior cervical adenopathy) Resp Effort & Inspection: normal respiratory effort Auscultation: clear to auscultation bilaterally Cardio Rate: regular rate Rhythm: regular rhythm Heart sounds: S1 normal heart sound present and S2 normal heart sound present Neuro General: patient oriented x3 Extrem General: Yes no pedal edema Results AMB Rapid Strep AMB Rapid Strep Positive Last Edit by ALEXSANDRA Nguyen on 01/20/25 11:00 Results Reviewed Results Reviewed: Laboratory Last Values Strep Scn Rapid Clinic Positive 01/20/25 10:59 Rapid strep positive Assessment & Plan Assessment & Plan (1) Strep pharyngitis: Code(s): J02.0 - Streptococcal pharyngitis Plan: Advised patient on starting antibiotics, NSAIDs and Throat rinses for self care and symptomatic treatment. Work note given, can return to work within 24 hours feeling better and fever free. Return to clinic if symptoms persist or do not improve over the next 3-5 days. Orders: Orders AMB Rapid Strep Screen Today Kerri Washington PA-C Z13.9 - Encounter for screening, unspecified Medications: New penicillin V potassium 500 mg PO BID 10 days 20 tabs 0RF SUSAN Aragon Coding Level of Care Code Est Pt Level 3 (06115) Diagnoses Strep pharyngitis J02.0 Time Spent (min) 30
[2025-01-20 10:50] VITALS: BP 128/80; PULSE 84; TEMP 36.6; O2SAT 98; BMI 28.6
== END 2025-01-20 12:02 | disposition home or self-care (01) ==
PROVIDERS: Visit Provider Physician Assistant
DX: Z13.9 Encounter for screening, unspecified (principal); J02.0 Streptococcal pharyngitis

== ENCOUNTER → 2025-01-20 10:09 | Outpatient (BNVA) | payer BC, SELFPAY | PROVIDERS: Visit Provider Physician Assistant | DX: J02.0 Streptococcal pharyngitis (principal) | CPT/HCPCS: 87880 ==

== ENCOUNTER → 2025-07-21 16:25 | Outpatient (AMB) | payer BC, SELFPAY ==
[2025-07-21 16:26] VITALS: BP 168/98; PULSE 110; TEMP 36.7; O2SAT 94; BMI 26.6
--- NOTE | 2025-07-21 16:26 | MHC.OFFWIV ---
Intake Vital Signs 07/21/25 16:26 Height 6 ft Weight 196 lb 4 oz BMI 26.6 BP 168/98 H Blood Pressure Location Lt brachial Position Sitting Pulse 110 H Pulse Source Pulse Oximeter Temp 98.0 F Temp Source Oral Pulse Oximetry (%) 94 Oxygen Delivery Method Room Air Intake Visit Reasons: EP anxiety Intake Note: Pt presents to the office today for anxiety attacks. Pt states he hasnt slept for 4 days besides little naps. Pt states he wakes up needing to be on high alert. Pt states he was on Citalopram for at least 3 years and then stopped for 2 years and feels like he needs medications again for the anxiety. Patient Tobacco Use Status: Current someday Tobacco user Allergies shellfish derived Allergy (Intermediate, Verified 07/21/25 16:29) Hives No Known Drug Allergies Allergy (Unknown, Verified 07/21/25 16:29) none leather Allergy (Mild, Uncoded 07/21/25 16:29) Hives HPI HPI Comments History of Present Illness Details History of Present Illness - The patient is a 30-year-old male presenting with severe anxiety. - The patient experiences severe anxiety with panic upon waking, without identifiable triggers, impacting his ability to work. - Previously managed with citalopram, discontinued two years ago due to fatigue. - Reduced physical activity is believed to exacerbate anxiety symptoms. - Occasional alcohol use, no illicit drug use, and access to employee assistance for support. - Reports sleep disturbances with difficulty maintaining sleep. - He does not have a therapist. - He denies SI or HI. - He denies VH or AH. Physical Exam General: Cooperative, healthy appearing, comfortable, no acute distress and well developed Orientation: Patient oriented x3 Limitations: No limitations Respiratory: Normal respiratory effort and able to speak in complete sentences. Clear to auscultation bilaterally Cardiovascular: Regular rate and rhythm. Normal S1 and S2 GI: Normal to inspection. Soft to palpation and nontender Skin: No rashes or lesions noted Neuro: Patient oriented x3 Patient was informed and verbally consented to the use of an ambient scribe for clinic note documentation during this visit. [facility] Medical History Anxiety and depression Abnormal lung sounds Cough Constipation Sore throat History of kidney stones Surgical History History of mandibular surgery Family History Father Hypertension High cholesterol Mother Hypertension High cholesterol Other Substance use disorder Social History Housing: House Alcohol intake: current Alcohol intake frequency: holidays/special occasions only Patient Tobacco Use Status: Current someday Tobacco user e-Cigarette/Vaping Use: Never Used Substance Use Type: Marijuana service: No Current occupational status: employed and student Current occupational exposures/hazards: No Cognitive needs: No Hearing needs: No Vision needs: Yes (glasses) Review of Systems Const All systems reviewed & are unremarkable except as noted in HPI and below Physical Exam Vital Signs: Last Vital Signs Temp 98.0 F 07/21/25 16:26 Pulse 110 H 07/21/25 16:26 BP 168/98 H 07/21/25 16:26 Pulse Ox 94 07/21/25 16:26 Oxygen Delivery Method Room Air 07/21/25 16:26 BMI result Body Mass Index 26.6 Assessment & Plan Assessment & Plan (1) Anxiety: Code(s): F41.9 - Anxiety disorder, unspecified Plan Most likely anxiety and possible depression plan - Restart citalopram at 10 mg daily, with plans to titrate as needed. - Prescribe hydroxyzine for acute anxiety episodes, to be taken as needed. - Referral to certified social workers in health care for counseling or therapy options. - Hydroxyzine prescribed to aid with sleep disturbances, to be taken as needed. - follow up with PCP. Medications: New citalopram 10 mg PO DAILY 30 tabs 0RF hydroxyzine HCl 25 mg PO Q6H 120 tabs 0RF 30 days Coding Level of Care Code Est Pt Level 3 (98043) Diagnoses Anxiety F41.9
== END ==
PROVIDERS: Visit Provider Physician Assistant Medical
DX: F41.9 Anxiety disorder, unspecified (principal)

== ENCOUNTER 2025-09-29 16:26 | Outpatient (AMB) | payer BC, SELFPAY ==
[2025-09-29 16:28] VITALS: BP 124/80; PULSE 98; TEMP 36.8; O2SAT 96; BMI 26.2
--- NOTE | 2025-09-29 16:28 | AM.OFFWIN_ITS ---
Intake Vital Signs 09/29/25 16:28 Height 6 ft Weight 193 lb BMI 26.2 BP 124/80 Blood Pressure Location Lt brachial Position Sitting Pulse 98 Pulse Source Pulse Oximeter Temp 98.3 F Temp Source Oral Pulse Oximetry (%) 96 Oxygen Delivery Method Room Air Intake Visit Reasons: EP Vomitting, nausea Intake Note: pt presents with GERD nausea and vomiting, decreased appetite, body chills for 2 days Patient Tobacco Use Status: Current someday Tobacco user Allergies shellfish derived Allergy (Intermediate, Verified 09/29/25 16:30) Hives No Known Drug Allergies Allergy (Unknown, Verified 09/29/25 16:30) none leather Allergy (Mild, Uncoded 09/29/25 16:30) Hives Do you need a note to return to daycare/school/sports/work: Yes HPI HPI Comments History of Present Illness Details History of Present Illness - The patient is a 30-year-old male pres enting with vomiting and diarrhea. - Vomiting started on 2 days ago, approx imately 48 hours prior to the visit, with three episodes reported. - No blood or black discoloration in vom itus. - Diarrhea has been ongoing x2 days, wit h no baseline history of diarrhea. NOthing bloody or black in it. - No fever reported, and no use of antip yretics such as Tylenol. - Unaware if he had any bad food, noone in family with similar symptoms - No prior history of similar gastrointe stinal issues reported. [facility] Medical History Anxiety and depression Abnormal lung sounds Cough Constipation Sore throat History of kidney stones Surgical History History of mandibular surgery Family History Father Hypertension High cholesterol Mother Hypertension High cholesterol Other Substance use disorder Social History Housing: House Alcohol intake: current Alcohol intake frequency: holidays/special occasions only Patient Tobacco Use Status: Current someday Tobacco user e-Cigarette/Vaping Use: Never Used Substance Use Type: Marijuana service: No Current occupational status: employed and student Current occupational exposures/hazards: No Cognitive needs: No Hearing needs: No Vision needs: Yes (glasses) Review of Systems Narrative Review of Systems - Gastrointestinal: Reports vomiting and diarrhea for 48 hours. Denies blood or black discoloration in stool or vomitus. - General: Denies fever. All systems reviewed and are unremarkable except as noted in HPI Physical Exam Exam Exam: Physical Exam General: Cooperative, healthy appearing, comfortable, no acute distress and well developed Orientation: Patient oriented x3 Limitations: No limitations Head: Normal to inspection Ears: Hearing grossly normal bilaterally Nose: Normal External nose present Face and sinus: Normal facial exam Eyes: Appearance normal, both eyes and all related structures Neck: Normal visual inspection and Yes full ROM Respiratory: Normal respiratory effort and able to speak in complete sentences. Skin: No rashes or lesions noted Neuro: Patient oriented x3 Extremities: Normal to inspection Vital Signs: Last Vital Signs Temp 98.3 F 09/29/25 16:28 Pulse 98 09/29/25 16:28 BP 124/80 09/29/25 16:28 Pulse Ox 96 09/29/25 16:28 Oxygen Delivery Method Room Air 09/29/25 16:28 BMI result Body Mass Index 26.2 Assessment & Plan Assessment & Plan (1) Diarrhea: Code(s): R19.7 - Diarrhea, unspecified Qualifiers: Diarrhea type: functional diarrhea Qualified Code(s): K59.1 - Functional diarrhea Plan: Patient was informed and verbally consented to the use of an ambient scribe for clinic note documentation during this visit. Likely viral Gastroenteritis - Encourage hydration with electrolyte solutions and water to prevent dehydration. - Monitor for signs of dehydration, such as increased heart rate over 100 bpm. - Consider stool test if symptoms persist beyond five days to rule out bacterial or viral infection. Has been ordered, should wait 2 days before picking up in case it self-resolves which is likely. - Prescribe ondansetron for nausea management. Orders: Orders GI Panel Today K59.1 - Functional diarrhea Medications: New ondansetron 4 mg PO Q8H PRN 10 tabs 0RF nausea and vomiting Coding Level of Care Code New Pt Level 3 (29191) Diagnoses Functional diarrhea K59.1 Diarrhea type: functional diarrhea
== END 2025-09-29 16:40 | disposition home or self-care (01) ==
PROVIDERS: Visit Provider Physician Assistant
DX: K59.1 Functional diarrhea (principal)

== ENCOUNTER 2025-10-05 15:18 | Outpatient (REF) | payer BC, SELFPAY ==
[2025-10-06 11:37] LABS: Resp Syncy Virus RNA Qual PCR NEGATIVE (Negative); SARS COV2 PCR INHOUSE NEGATIVE (Negative)
== END 2025-10-05 15:19 | disposition home or self-care (01) ==
LOC: HO.LAB 15:18
PROVIDERS: Visit Provider Nurse Practitioner Family
DX: Z03.818 Encounter for observation for suspected exposure to other biological agents ruled out (principal)
CPT/HCPCS: 87637

== ENCOUNTER 2025-10-05 15:18 | Outpatient (AMB) | payer BC, SELFPAY ==
[2025-10-05 15:19] VITALS: BP 138/80; PULSE 100; O2SAT 98; BMI 27.8
--- NOTE | 2025-10-05 15:19 | AM.OFFWIN_ITS ---
Intake Vital Signs 10/05/25 15:19 Height 6 ft Weight 205 lb BMI 27.8 BP 138/80 Blood Pressure Location Rt brachial Position Sitting Pulse 100 Pulse Source Pulse Oximeter Pulse Oximetry (%) 98 Oxygen Delivery Method Room Air Intake Visit Reasons: EP Nausea, vomitting Intake Note: Patient returns c/o nausea that has not gotten any better. Patient seen on 09/29 for anxiety/nausea/vomiting. Patient states vomiting has subsided a little bit, had diarrhea today. Patient Tobacco Use Status: Current someday Tobacco user Allergies shellfish derived Allergy (Intermediate, Verified 10/05/25 15:23) Hives No Known Drug Allergies Allergy (Unknown, Verified 10/05/25 15:23) none leather Allergy (Mild, Uncoded 10/05/25 15:23) Hives Do you need a note to return to daycare/school/sports/work: Yes HPI HPI Comments History of Present Illness Details 30 y/o male patient presents to the walk -in clinic with c/o chronic diarrhea worsening over the past 2 days. He was seen on 09/29 for similar concerns and was prescribed Zofran, which resolved nausea and vomiting. He was previously instructed to bring in a stool sample for testing but did not do so. Pt reports he often experiences diarrhea after eating ?unhealthy foods? such as [employer] or [employer]. He is currently also experiencing URI symptoms including sinus congestion, body chills, body aches, and fatigue. Denies known sick contacts. Pt has a h/o chronic diarrhea and previously saw GI in 2023. Abdominal ultrasound at that time was unremarkable. Denies: fever, hematochezia, melena, abdominal distention, urinary symptoms. [facility] Medical History (Updated 10/05/25 @ 18:06 by Anamaria Duran NP) Acute respiratory disease Anxiety and depression Abnormal lung sounds Cough Constipation Sore throat History of kidney stones Surgical History History of mandibular surgery Family History Father Hypertension High cholesterol Mother Hypertension High cholesterol Other Substance use disorder Social History Housing: House Alcohol intake: current Alcohol intake frequency: holidays/special occasions only Patient Tobacco Use Status: Current someday Tobacco user e-Cigarette/Vaping Use: Never Used Substance Use Type: Marijuana service: No Current occupational status: employed and student Current occupational exposures/hazards: No Cognitive needs: No Hearing needs: No Vision needs: Yes (glasses) Review of Systems Const All systems reviewed & are unremarkable except as noted in HPI and below Physical Exam Vital Signs: Last Vital Signs Pulse 100 10/05/25 15:19 BP 138/80 10/05/25 15:19 Pulse Ox 98 10/05/25 15:19 Oxygen Delivery Method Room Air 10/05/25 15:19 BMI result Body Mass Index 27.8 Const General: no acute distress Nutritional Appearance: overweight Orientation/consciousness: patient oriented x3 HEENT Head: Yes normocephalic Ears: external ears normal and TM abnormal obstructed by cerumen bilateral General nose exam: Abnormal mucous membranes and turbinates present erythematous and Nasal discharge present Face and sinus: Yes sinus tenderness Mouth: moist mucous membranes and Abnormal oral and palatal mucosa present erythematous Throat: Yes uvula midline Resp Effort & Inspection: normal respiratory effort Auscultation: clear to auscultation bilaterally Cardio Heart sounds: S1 normal heart sound present and S2 normal heart sound present GI Other: Soft, non-distended. Mild diffuse tenderness, no rebound or guarding. Hyperactive bowel sounds. Neuro General: patient oriented x3 Assessment & Plan Assessment & Plan (1) Diarrhea: Code(s): R19.7 - Diarrhea, unspecified Qualifiers: Diarrhea type: functional diarrhea Qualified Code(s): K59.1 - Functional diarrhea Plan: Acute on chronic diarrhea ? likely dietary-related vs. infectious etiology (viral gastroenteritis). History of chronic diarrhea ? stool studies pending collection. Recommend BRAT / bland diet for 24?48 hours; avoid trigger foods (fast food, greasy foods, dairy, caffeine). Return precautions: fever, persistent vomiting, severe abdominal pain, signs of dehydration, bloody stool. (2) Acute respiratory disease: Code(s): J06.9 - Acute upper respiratory infection, unspecified Plan: Ordered SARs. URI symptoms ? likely viral upper respiratory infection. Encouraged hydration with oral electrolyte solutions. Supportive care for URI symptoms: rest, fluids, saline nasal spray, OTC antihist amines or decongestants if needed. Orders: Orders SARS-CoV2/FLU/RSV Today R09.89 - Other specified symptoms and signs involving the circulatory and respiratory systems Coding Level of Care Code Est Pt Level 4 (28853) Diagnoses Functional diarrhea K59.1 Diarrhea type: functional diarrhea Acute respiratory disease J06.9 Time Spent (min) 20
== END 2025-10-05 15:56 | disposition home or self-care (01) ==
PROVIDERS: Visit Provider Nurse Practitioner Family
DX: K59.1 Functional diarrhea (principal); J06.9 Acute upper respiratory infection, unspecified